=== PATIENT | female | born 1985 | race Caucasian/White ===

== ENCOUNTER → 2016-08-23 | Outpatient (CLI) | payer BC ==
[~2016-08-23] MED LIST: BCPILLS PO; NF406 PO
[2016-08-23 14:16] LABS: URINE TOTAL PROTEIN 142.5 mg/dl (0-11.9)
== END | disposition home or self-care (01) ==
LOC: C.LABMFLN 11:36
PROVIDERS: ATTEND Nurse Practitioner
DX: R80.9 Proteinuria, unspecified (principal)

== ENCOUNTER → 2016-09-20 | Outpatient (CLI) | payer BC ==
[2016-09-25 09:29] LABS: ALBUMIN % 81.02 %; ALPHA-2-GLOBULIN % 3.83 %; BETA GLOBULIN % 8.01 %; CREATININE UR 138 MG/DL (20-320); GAMMA GLOBULIN % 3.52 %
== END | disposition home or self-care (01) ==
LOC: C.LABMFLN 11:12
PROVIDERS: ATTEND Internal Medicine Nephrology
DX: R80.9 Proteinuria, unspecified (principal)

== ENCOUNTER → 2016-12-27 | Outpatient (CLI) | payer BC ==
--- NOTE | 2016-12-27 16:03 | DIAGNOSTIC IMAGING REPORT ---
ULTRASOUND KIDNEYS AND BLADDER CLINICAL HISTORY: Right-sided hydronephrosis. COMPARISON STUDY: No priors. TECHNIQUE: Real-time, grayscale, and color flow sonography of the kidneys and bladder is performed. Images are reviewed in the transverse and longitudinal planes. FINDINGS: Kidneys: The kidneys are normal in size and echotexture. The right kidney measures 11.8 cm in length and the left kidney measures 11.2 cm in length. There is no hydronephrosis. An extrarenal pelvis is noted on the right. No shadowing renal calculi are identified. There is no sonographic evidence of contour deforming renal mass lesion. No perinephric fluid is identified. Bladder: The bladder is normal as visualized. Ureteral jets were not seen. IMPRESSION: 1. The kidneys are normal in size and without hydronephrosis. 2. The bladder is normal as visualized. Electronically signed by: Jose Manuel Perera M.D. 12/27/2016 4:02 PM Dictated Date/Time: 12/27/2016 4:01 PM
== END | disposition home or self-care (01) ==
LOC: C.ULTR 15:00
PROVIDERS: ATTEND Internal Medicine Nephrology
DX: N13.30 Unspecified hydronephrosis (principal)

== ENCOUNTER 2017-03-13 11:52 | Emergency (ER) | payer BC ==
[~2017-03-13] VITALS: Ht 157.5 cm; Wt 59.9 kg
[~2017-03-13 11:52] MED LIST changes: -NF406 PO; +OSEL75CA23 PO
[2017-03-13 12:07] VITALS: TEMP 36.6; Ht 157.5 cm; Wt 59.9 kg
[2017-03-13] MEDS ORDERED: TAMSULOSIN HCL 0.4 MG CAP ONE (13:20)
[2017-03-13] MEDS ORDERED: SODIUM CHLORIDE 0.9% 1000ML 1,000 ML IV STA (13:27)
[2017-03-13] MEDS ORDERED: OPTIRAY 320 IV PRN (13:45)
[2017-03-13 14:24] LABS: BASO % 0.9 %; BASO ABS # 0.06 K/uL (0-0.2); EOS ABS # 0.13 K/uL (0-0.5); HEMATOCRIT 35.2 % (37-47); IG# 0.01 K/uL (0.00-0.02); LYMPH % 32.2 %; LYMPH ABS # 2.05 K/uL (1.2-3.4); MEAN CELL VOLUME 86.7 fL (80-100); MEAN CORPUSCULAR HEMOGLOBIN 29.6 pg (25-34); MEAN CORPUSCULAR HGB CONC 34.1 g/dl (32-36); MEAN PLATELET VOLUME 10.7 fL (7.4-10.4); MONO % 8.3 %; MONO ABS # 0.53 K/uL (0.11-0.59); NEUT % 56.4 %; NEUT ABS # 3.59 K/uL (1.4-6.5); PLATELET COUNT 190 K/uL (130-400); RED CELL DISTRIBUTION WIDTH CV 12.3 % (11.5-14.5); RED CELL DISTRIBUTION WIDTH SD 39.6 fL (36.4-46.3); WHITE BLOOD COUNT 6.37 K/uL (4.8-10.8)
[2017-03-13 14:40] LABS: CALCIUM 9.6 mg/dl (8.5-10.1); CREATININE 0.67 mg/dl (0.60-1.20); POTASSIUM 3.5 mmol/L (3.5-5.1)
[2017-03-13 14:42] LABS: TOTAL PROTEIN 7.2 gm/dl (6.4-8.2)
[2017-03-13 14:49] LABS: INFLUENZA B ANTIGEN Neg for Influ B (NEG)
--- NOTE | 2017-03-13 15:12 | DIAGNOSTIC IMAGING REPORT ---
CHEST 2 VIEWS ROUTINE CLINICAL HISTORY: Near syncope. COMPARISON STUDY: Chest radiograph May 29, 2013. FINDINGS: Lung volumes are normal. No pneumothorax or pleural effusion is noted. There is no consolidation or evidence of pulmonary edema. Nipple shadows are noted. Cardiomediastinal silhouette is normal. IMPRESSION: No acute cardiopulmonary findings. Electronically signed by: Willem Poon M.D. 03/13/2017 3:10 PM Dictated Date/Time: 03/13/2017 3:05 PM
--- NOTE | 2017-03-13 15:38 | DIAGNOSTIC IMAGING REPORT ---
CT OF THE ABDOMEN AND PELVIS WITH CONTRAST CLINICAL HISTORY: pain, near syncope s/p renal bx 2 days ago COMPARISON STUDY: Renal ultrasound December 27, 2016. TECHNIQUE: Following IV administration of 95 mL of Optiray-320, axial images of the abdomen and pelvis were obtained from the lung bases to the proximal femurs. Images were reviewed in the axial, sagittal, and coronal planes. IV contrast was administered without complication. A dose lowering technique was utilized adhering to the principles of ALARA. CT DOSE: 348.19 mGycm FINDINGS: A 5 mm right hepatic lobe cyst is noted. The spleen, adrenal glands, left kidney and pancreas are normal. There is no biliary or pancreatic ductal dilatation. Mild to moderate right hydronephrosis is similar to ultrasound of December 27, 2016. Band-like hypodensity within the lower pole of the right kidney likely reflects a biopsy tract. There is no subcapsular hematoma. No pseudoaneurysm is identified on this non-CTA exam. There is no perinephric hemorrhage. Caliber and wall thickness of small and large bowel are normal. The appendix is normal. There is no lymphadenopathy. The ovaries are not enlarged. Trace low-attenuation free pelvic fluid is likely physiologic. Uterus is retroverted. There is no lymphadenopathy. There are no suspicious osseous lesions. IMPRESSION: 1. Band-like hypodensity within the lower pole of the right kidney suggestive of a biopsy tract. No pseudoaneurysm, subcapsular hematoma or perinephric hemorrhage. The findings are considered within normal limits 2 days following a percutaneous renal biopsy. 2. Trace low-attenuation free fluid within the pelvis which is likely physiologic. 3. Mild to moderate right hydronephrosis which is similar to ultrasound December 27, 2016. Electronically signed by: Willem Poon M.D. 03/13/2017 3:36 PM Dictated Date/Time: 03/13/2017 3:29 PM
[2017-03-13 16:18] VITALS: BP 120/83; PULSE 77; O2SAT 99
--- NOTE | 2017-03-13 17:31 | EMERGENCY ROOM VISIT NOTE ---
History Report prepared by [place]: Yessi Jade Under the Supervision of: Dr. Quinton Garcia M.D. First contact with patient: 13:07 Chief Complaint: ILLNESS Stated Complaint: HEADACHE,SHAKINESS,SIDE PAIN,FAINTING History of Present Illness The patient is a 31 year old female who presents to the Emergency Room with complaints of persistent right flank pain starting 2 days ago. The patient had a right kidney biopsy 2 days ago to find out why she is urinating protein. Since the biopsy, she has been feeling ill. She is having R flank pain. She has been rubbing the area to some relief. She feels faint, shaky, and diaphoretic. She denies any headache, cough, LOC, fever, nausea, vomiting, or diarrhea. She denies any chance of . She denies any recent travel, hemoptysis, or recent surgeries. Source of History: patient Onset: 2 days ago Position: abdomen (RUQ) Quality: other (pain) Timing: other (persistent) Modifying Factors (Relieving): other (rubbing the area) Associated Symptoms: + diaphoresis, No LOC, No fevers, No cough, No nausea, No vomiting, No diarrhea Note: Pt reports feeling faint, shaky. Review of Systems See HPI for pertinent positives and negatives. A total of ten systems were reviewed and were otherwise negative. Past Medical & Surgical Medical Problems: (1) Asthma (2) Bronchitis (3) Kidney stone Surgical Problems: (1) H/O wisdom tooth extraction Family History Diabetes mellitus FH: gallbladder disease FH: heart disease FH: ovarian cancer Hypertension Kidney disease or stones Social History Smoking Status: Never Smoker Alcohol Use: none Marital Status: Housing Status: lives with family Current/Historical Medications No Active Prescriptions or Reported Meds Allergies Coded Allergies: Amoxicillin (Unverified Allergy, Severe, ANAPHYLAXIS, 03/13/17) Penicillins (Unverified Allergy, Mild, 03/13/17) Physical Exam Vital Signs Date Time Temp Pulse Resp B/P (MAP) Pulse Ox O2 Delivery O2 Flow Rate FiO2 03/13/17 16:18 77 18 120/83 99 03/13/17 15:38 74 18 118/79 100 Room Air 03/13/17 13:22 87 16 147/93 96 Room Air 03/13/17 12:07 36.6 89 18 151/87 99 Room Air Physical Exam Physical Exam GENERAL: She is oriented to person, place, and time. She appears well- developed and well-nourished. She does not appear distressed. ____ HENT: Exam performed. Head: Normocephalic and atraumatic. Right Ear: External ear normal. No mastoid tenderness. Left Ear: External ear normal. No mastoid tenderness. Mouth/Throat: The oropharynx is clear and moist. No trismus in the jaw. No dental abscesses or uvula swelling. No oropharyngeal exudate or tonsillar abscesses. ____ EYES: Conjunctivae and EOM are normal. Pupils are equal, round, and reactive to light. Right eye exhibits no discharge. Left eye exhibits no discharge. No scleral icterus. ____ NECK: Normal range of motion. Neck supple. No JVD present. No spinous process tenderness present. No carotid bruit present. No rigidity. No tracheal deviation and normal range of motion present. No Brudzinski's sign and no Kernig 's sign noted. ____ CV: Normal rate, regular rhythm, normal heart sounds and intact distal pulses. There is no peripheral edema. Palpable radial pulses bue. ____ PULM/CHEST: Effort normal and breath sounds normal. No respiratory distress. No stridor. She has no wheezes. She has no rales. Chest Wall: She exhibits no tenderness. ____ ABD: The abdomen is soft. Bowel sounds are normal. She has no distension. No mass is present. There is no tenderness. There is no rebound, no guarding, no Cabrera's sign and no tenderness at McBurney's point. Rovsig negative MUSC/SKEL: Normal range of motion. There is no peripheral edema, tenderness or deformity. Area over the right flank with biopsy was conducted shows no erythema. No purulent discharge. No bleeding. Mild tenderness on palpation. LYMPH: No cervical adenopathy. ____ NEURO: She is alert and oriented to person, place, and time. She has normal strength. No cranial nerve deficit or sensory deficit. Coordination and gait normal. GCS eye subscore is 4. GCS verbal subscore is 5. GCS motor subscore is 6. cerbellar tests wnl. ____ SKIN: Skin is warm and dry. She is not diaphoretic. ____ PSYCH: She has a normal mood and affect. Her behavior is normal. Judgment and thought content normal. ____ Medical Decision & Procedures ER Provider Diagnostic Interpretation: Xray results as stated below per my and radiologist interpretation. Radiology results as stated below per my review and radiologist interpretation: CHEST 2 VIEWS ROUTINE CLINICAL HISTORY: Near syncope. COMPARISON STUDY: Chest radiograph May 29, 2013. FINDINGS: Lung volumes are normal. No pneumothorax or pleural effusion is noted. There is no consolidation or evidence of pulmonary edema. Nipple shadows are noted. Cardiomediastinal silhouette is normal. IMPRESSION: No acute cardiopulmonary findings. Electronically signed by: Willem Poon M.D. 03/13/2017 3:10 PM Dictated Date/Time: 03/13/2017 3:[address] OF THE ABDOMEN AND PELVIS WITH CONTRAST CLINICAL HISTORY: pain, near syncope s/p renal bx 2 days ago COMPARISON STUDY: Renal ultrasound December 27, 2016. TECHNIQUE: Following IV administration of 95 mL of Optiray-320, axial images of the abdomen and pelvis were obtained from the lung bases to the proximal femurs. Images were reviewed in the axial, sagittal, and coronal planes. IV contrast was administered without complication. A dose lowering technique was utilized adhering to the principles of ALARA. CT DOSE: 348.19 mGycm FINDINGS: A 5 mm right hepatic lobe cyst is noted. The spleen, adrenal glands, left kidney and pancreas are normal. There is no biliary or pancreatic ductal dilatation. Mild to moderate right hydronephrosis is similar to ultrasound of December 27, 2016. Band-like hypodensity within the lower pole of the right kidney likely reflects a biopsy tract. There is no subcapsular hematoma. No pseudoaneurysm is identified on this non-CTA exam. There is no perinephric hemorrhage. Caliber and wall thickness of small and large bowel are normal. The appendix is normal. There is no lymphadenopathy. The ovaries are not enlarged. Trace low-attenuation free pelvic fluid is likely physiologic. Uterus is retroverted. There is no lymphadenopathy. There are no suspicious osseous lesions. IMPRESSION: 1. Band-like hypodensity within the lower pole of the right kidney suggestive of a biopsy tract. No pseudoaneurysm, subcapsular hematoma or perinephric hemorrhage. The findings are considered within normal limits 2 days following a percutaneous renal biopsy. 2. Trace low-attenuation free fluid within the pelvis which is likely physiologic. 3. Mild to moderate right hydronephrosis which is similar to ultrasound December 27, 2016. Electronically signed by: Willem Poon M.D. 03/13/2017 3:36 PM Dictated Date/Time: 03/13/2017 3:29 PM Laboratory Results 03/13/17 14:09 Red Blood Count 4.06, Mean Corpuscular Volume 86.7, Mean Corpuscular Hemoglobin 29.6, Mean Corpuscular Hemoglobin Concent 34.1, Mean Platelet Volume 10.7, Neutrophils (%) (Auto) 56.4, Lymphocytes (%) (Auto) 32.2, Monocytes (%) (Auto) 8.3, Eosinophils (%) (Auto) 2.0, Basophils (%) (Auto) 0.9, Neutrophils # (Auto) 3.59, Lymphocytes # (Auto) 2.05, Monocytes # (Auto) 0.53, Eosinophils # (Auto) 0.13, Basophils # (Auto) 0.06 03/13/17 14:09 Test 03/13/17 13:15 03/13/17 14:03 03/13/17 14:09 Urine Color YELLOW Urine Appearance CLEAR (CLEAR) Urine pH 6.5 (4.5-7.5) Urine Specific [place] 1.007 (1.000-1.030) Urine Protein NEG (NEG) Urine Glucose (UA) NEG (NEG) Urine Ketones NEG (NEG) Urine Occult Blood TRACE (NEG) Urine Nitrite NEG (NEG) Urine Bilirubin NEG (NEG) Urine Urobilinogen NEG (NEG) Urine Leukocyte Esterase NEG (NEG) Urine WBC (Auto) 1-5 /hpf (0-5) Urine RBC (Auto) 0-4 /hpf (0-4) Urine Hyaline Casts (Auto) 0 /lpf (0-5) Urine Epithelial Cells (Auto) 10-20 /lpf (0-5) Urine Bacteria (Auto) NEG (NEG) Urine Test NEG (NEG) Influenza Type A Antigen Neg for Influ A (NEG) Influenza Type B Antigen Neg for Influ B (NEG) White Blood Count 6.37 K/uL (4.8-10.8) Red Blood Count 4.06 M/uL (4.2-5.4) Hemoglobin 12.0 g/dL (12.0-16.0) Hematocrit 35.2 % (37-47) Mean Corpuscular Volume 86.7 fL (80-100) Mean Corpuscular Hemoglobin 29.6 pg (25-34) Mean Corpuscular Hemoglobin Concent 34.1 g/dl (32-36) Platelet Count 190 K/uL (130-400) Mean Platelet Volume 10.7 fL (7.4-10.4) Neutrophils (%) (Auto) 56.4 % Lymphocytes (%) (Auto) 32.2 % Monocytes (%) (Auto) 8.3 % Eosinophils (%) (Auto) 2.0 % Basophils (%) (Auto) 0.9 % Neutrophils # (Auto) 3.59 K/uL (1.4-6.5) Lymphocytes # (Auto) 2.05 K/uL (1.2-3.4) Monocytes # (Auto) 0.53 K/uL (0.11-0.59) Eosinophils # (Auto) 0.13 K/uL (0-0.5) Basophils # (Auto) 0.06 K/uL (0-0.2) RDW Standard Deviation 39.6 fL (36.4-46.3) RDW Coefficient of Variation 12.3 % (11.5-14.5) Immature Granulocyte % (Auto) 0.2 % Immature Granulocyte # (Auto) 0.01 K/uL (0.00-0.02) Anion Gap 6.0 mmol/L (3-11) Est Creatinine Clear Calc Drug Dose 96.3 ml/min Estimated GFR () 135.8 Estimated GFR (Non- 117.1 BUN/Creatinine Ratio 14.9 (10-20) Lactic Acid Level 1.2 mmol/L (0.4-2.0) Calcium Level 9.6 mg/dl (8.5-10.1) Total Bilirubin 0.4 mg/dl (0.2-1) Aspartate Amino Transf (AST/SGOT) 13 U/L (15-37) Alanine Aminotransferase (ALT/SGPT) 18 U/L (12-78) Alkaline Phosphatase 53 U/L (45-117) Total Protein 7.2 gm/dl (6.4-8.2) Albumin 4.0 gm/dl (3.4-5.0) Globulin 3.2 gm/dl (2.5-4.0) Albumin/Globulin Ratio 1.3 (0.9-2) Lipase 155 U/L (73-393) Laboratory results reviewed by me Medications Administered Medications (Trade) Dose Ordered Sig/Josiah Route Start Time Stop Time Status Last Admin Dose Admin Sodium Chloride 1,000 ml @ 999 mls/hr Q1H1M STAT IV 03/13/17 13:27 03/13/17 14:27 DC 03/13/17 14:30 999 MLS/HR ECG Indication: other (near syncope) Rate (beats per minute): 71 Rhythm: sinus rhythm Findings: no acute ischemic change, no ectopy, other (CA, QRS, QTc within normal limits, no ST elevation or ST depression) Change: Patient's electrocardiogram per my interpretation. ED Course 1321: The patient was evaluated in room A2. A complete history and physical exam was performed. 1327: NSS 1000 ml @ 999 mls/hr IV. 1430: I reevaluated the patient. 1556: I discussed the patient's case with [place]. [place], [facility] [place]. Given that the patient's labs and vitals are normal, she can be discharged home and follow up within one week. 1600: I reevaluated the patient. Repeat serial abdominal examination within normal limits. DISCHARGE - Plan of care discussed with patient and questions answered. The patient was given both verbal and printed discharge instructions. The patient verbalized understanding and ability to comply. The patient is to seek outpatient follow up as noted in the discharge instructions. The patient verbalized understanding and ability to comply. The patient is discharged in stable condition. The patient was instructed to return for worsening symptoms. Medical Decision Vss labs and imaging within normal limits. Discussed with [facility] who the patient sees outpatient and the patient will follow-up with them. Serial abdominal exams wnl dc w/ f/u pcp 1-7 days DISCHARGE - Plan of care discussed with patient and questions answered. The patient was given both verbal and printed discharge instructions. The patient verbalized understanding and ability to comply. The patient is to seek outpatient follow up as noted in the discharge instructions. The patient verbalized understanding and ability to comply. The patient is discharged in stable condition. The patient was instructed to return for worsening symptoms. Medication Reconcilliation Current Medication List: was personally reviewed by me Blood Pressure Screening Patient's blood pressure: Normal blood pressure Blood pressure disposition: Did not require urgent referral Consults Time Called: 1545 Consulting Physician: Dr. Rodriguez, [facility] Returned Call: [phone] I discussed the patient's case with him. Given that the patient's labs and vitals are normal, she can be discharged home and follow up within one week. Impression Primary Impression: Viral syndrome Additional Impression: Abdominal pain Scribe Attestation The scribe's documentation has been prepared under my direction and personally reviewed by me in its entirety. I confirm that the note above accurately reflects all work, treatment, procedures, and medical decision making performed by me. The chart was completed utilizing [employer] Speech voice recognition software. Grammatical errors, random word insertions, pronoun errors, and incomplete sentences are an occasional consequence of this system due to software limitations, ambient noise, and hardware issues. Any formal questions or concerns about the content, text, or information contained within the body of this dictation should be directly addressed to the physician for clarification. Departure Information Dispostion Home / Self-Care Prescriptions No Active Prescriptions or Reported Meds Referrals [facility] Forms HOME CARE DOCUMENTATION FORM, IMPORTANT VISIT INFORMATION, WORK / SCHOOL INSTRUCTIONS Patient Instructions Abdominal Pain - [facility], ED Viral Syndrome, My [facility] Additional Instructions follow up with your panel wirer Dr. Davila in 1-7 days Return to the emergency department if he developed fever greater 100.4, pass out , have a seizure, chest pain or difficulty breathing, or your symptoms worsen. Problem Qualifiers Additional Impression: Abdominal pain Abdominal location: unspecified location Qualified Codes: R10.9 - Unspecified abdominal pain
== END 2017-03-13 16:19 | disposition home or self-care (01) ==
LOC: C.EDB 11:54 → C.EDA 16:19
DX: R10.31 Right lower quadrant pain (principal); B34.9 Viral infection, unspecified; Z98.890 Other specified postprocedural states; J45.909 Unspecified asthma, uncomplicated; Z87.442 Personal history of urinary calculi; Z83.3 Family history of diabetes mellitus; Z82.49 Family history of ischemic heart disease and other diseases of the circulatory system; Z80.41 Family history of malignant neoplasm of ovary

== ENCOUNTER → 2017-03-20 | Outpatient (CLI) | payer BC ==
[~2017-03-20] MED LIST changes: -BCPILLS PO; +OPTIRAY 300 IV PRN; -OSEL75CA23 PO
--- NOTE | 2017-03-20 14:44 | DIAGNOSTIC IMAGING REPORT ---
IVP CLINICAL HISTORY: Hydronephrosis of right kidney. Right flank pain. COMPARISON STUDY: Renal ultrasound December 27, [address] of the abdomen and pelvis March 13, 2017. TECHNIQUE: Initially, a wastewater superintendent KUB was obtained. An IVP was then performed following intravenous injection of 100 cc of Optiray 320 IV. FINDINGS: No urinary calculi are identified on the wastewater superintendent KUB. Bowel gas pattern is normal. Pelvic calcifications reflect phleboliths. Both nephrograms are symmetric. There is mild right hydronephrosis with a normal caliber right ureter. No upper tract filling defects are identified. There is no left-sided hydronephrosis or hydroureter. No ureteral abnormalities are identified on this examination. Bladder is suboptimally assessed on this exam but no abnormalities identified. IMPRESSION: 1. Mild right hydronephrosis with mild dilatation of the right renal pelvis and minimal right calyceal dilatation. Normal caliber right ureter. 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 No evidence for a high-grade obstruction. 2. Otherwise unremarkable IVP. Electronically signed by: Willem Poon M.D. 03/20/2017 2:42 PM Dictated Date/Time: 03/20/2017 2:25 PM
== END | disposition home or self-care (01) ==
LOC: C.RAD 12:29
PROVIDERS: ATTEND Internal Medicine Nephrology
DX: N13.30 Unspecified hydronephrosis (principal); R10.9 Unspecified abdominal pain

== ENCOUNTER → 2017-05-10 | Outpatient (CLI) | payer BC | END | disposition home or self-care (01) | LOC: C.LAB1850 11:40 | PROVIDERS: ATTEND Internal Medicine Nephrology | DX: N02.2 Recurrent and persistent hematuria with diffuse membranous glomerulonephritis (principal) ==

== ENCOUNTER 2024-01-31 05:45 | Inpatient (IN) ==
--- NOTE | 2024-01-21 11:19 | Anesthesiology Consultation ---
Date of Service January 21, 2024 Assessment & Plan (1) Encounter for pre-operative examination: - anxiety: patient states has significant anxiety regarding , is requesting sedation. She states in the past has required sedation prior to being taken to the OR due to severe anxiety. Patient advised that determination on sedation/anxiety medication would need to be to OB determination regarding any options in consideration of impact. Exam & Advise: patient seen at PAT 01/21/24. Patient requested PAT appointment given anxiety regarding , states she feels okay with plan for spinal but is very anxious regarding experience of and history of severe an xiety without sedation. No obvious deformity noted to lumbar spine on exam at PAT visit. Patient educated on epidural/spinal; plan at this point for (patient would like spinal for pain management). All questions answered. Patient advised that determination on sedation or anxiety medication would need to be to OB determination regarding any options in consideration of impact. She ve rbalized understanding, expressed appreciation for discussion. She was instructed to call office if any other anesthesia questions or concerns arise; she indicated comfort with spinal/anesthesia plan. Business card given. Anca with surgeon's office made aware. Chart Review Chart Review: Acceptable Risk for Surgery and Patient seen in Pre Admission Testing History Surgery Operation Date: 01/31/24 07:30 Proposed Procedures p Section in LD (Delivery of Baby Through Abdominal Incision) - Stacia Telles MD, FACOG Height/Weight Height: 5 ft 6 in Weight: 86.5 kg Allergies Allergy/AdvReac Type Severity Reaction Status Date / Time amoxicillin Allergy Severe ANAPHYLAXIS Unverified 01/21/24 11:21 Penicillins Allergy Mild Unverified 01/21/24 11:21 Medications Home Medications Medication Instructions Recorded Confirmed Last Taken [id number] 1 dose PO DAILY 06/18/23 01/21/24 Unknown [ Plus] Past Medical History Medical History (Updated 01/21/24 @ 11:51 by Cyndie Dietrich PA-C) Asthma no current issues and no inhaler Rx Chicken pox as a child GERD (gastroesophageal reflux disease) during Iron deficiency anemia was on oral supplementation first two trimesters; received iron infusion 01/19 and scheduled for 2 more prior to due date Kidney stone hx of; no issues at present time 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 Exercise / Class Metabolic Activity II 4-5 Yardwork/Stairs/Walk up hill (mild shortness of breath with activities ongoing through -denies chest discomfort-denies change or worsening) Past Family History Family History Grandfather (Maternal) Myocardial infarction Grandfather (Paternal) Myocardial infarction Uncle Myocardial infarction Grandmother (Paternal) Stroke Other Nephrolithiasis Denies family history of Ovarian cancer Prostate cancer Diabetes Kidney disease Breast cancer Lung cancer Colorectal cancer Past Surgical History Surgical History H/O dilation and curettage x 3 for miscarriages H/O wisdom tooth extraction Past Anesthesia History No Family Hx of Anesthesia Complications and Other (severe chiquita-operative anxiety) History of PONV No Hx of PONV and Hx of Motion Sickness Social History Smoking Status: Never smoker Do You Dip or Chew Tobacco: No Hx Alcohol Use: No Hx Substance Use: No Review of Systems Patient denies chest pain, snoring, witnessed apneas, fever, chills, cough, wh eezing, or palpitations. Physical Exam Vital Signs Vitals BP 106/78 P 85 TEMP 97.8 SP02 97% on RA RESP 19 Physical Patient resting comfortably in chair in no acute distress, alert and oriented, responding appropriately throughout visit Full cervical extension range of motion without pain TMD 3.5 finger breadths Mallampati Score 2 Dentition: intact, denies chipped or loose teeth, caps/crowns, implants or bridges Lungs: normal respiratory effort. Good air movement, clear throughout to auscultation, no adventitious breath sounds Cardiac: regular rate and rhythm, no murmurs noted Carotid arteries: negative bruit bilat Lumbar: normal in appearance, nontender to palpation of spinous process, paraspinal muscles; no spinal malalignment on exam Lab Results Anesthesia Preop Results Results Anesthesia Widget: WBC 6.47 K/ul (4.8-10.8) 01/09/24 Hgb 10.2 g/dl (12.0-16.0) L 01/09/24 Hct 31.7 % (37.0-47.0) L 01/09/24 Plt 229 K/uL (130-400) 01/09/24 Na 137 mmol/L (136-145) 01/09/24 K 3.7 mmol/L (3.5-5.1) 01/09/24 Cl 107 mmol/L (98-107) 01/09/24 CO2 22 mmol/L (21-32) 01/09/24 BUN 5 mg/dl (6-23) L 01/09/24 Creat 0.59 mg/dl (0.6-1.2) L 01/09/24 Glucose Level 146 mg/dl (70-99(Fasting)) H 01/09/24
--- NOTE | 2024-01-30 16:59 | History & Physical Report ---
Date of Service January 30, 2024 Assessment & Plan (1) Breech presentation, no version: Plan: multigravida female with 3 prior 's now presents with persistent breech presentation at term will proceed with primary LTCS unless baby converts to cephalic by tomorrow am the procedure and it's risks reviewed with the patient and her and all questions answered to their satisfaction. requesting some sedation as she is very anxious about the section. I offered IV benadryl and she accepts as this usually makes her sleepy. History of Present Illness Primary Care Provider: NO PCP Patient is a 38 yo [id number] [facility] [birth year] who presents at 39 3/7 weeks for primary LTCS for persistent breech presentation. complicated by AMA status - testing has been reassuring. 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 GBS (+) blood type A negative Allergies Allergy/AdvReac Type Severity Reaction Status Date / Time amoxicillin Allergy Severe ANAPHYLAXIS Unverified 01/30/24 15:00 Penicillins Allergy Mild Unverified 01/30/24 15:00 Home Medications Medication Instructions Recorded Confirmed Type [id number] 1 dose PO DAILY 06/18/23 01/30/24 History [ Plus] Patient History Medical History (Updated 01/30/24 @ 17:04 by Stacia Telles MD, FACOG) GERD (gastroesophageal reflux disease) during Iron deficiency anemia was on oral supplementation first two trimesters; received iron infusion 01/19 and scheduled for 2 more prior to due date Chicken pox as a child 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 [facility]; per note, 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 Kidney stone hx of; no issues at present time Asthma no current issues and no inhaler Rx Surgical History H/O dilation and curettage x 3 for miscarriages H/O wisdom tooth extraction Family History Grandfather (Maternal) Myocardial infarction Grandfather (Paternal) Myocardial infarction Uncle Myocardial infarction Grandmother (Paternal) Stroke Other Nephrolithiasis Denies family history of Ovarian cancer Prostate cancer Diabetes Kidney disease Breast cancer Lung cancer Colorectal cancer Social History (Updated 06/18/23 @ 11:22 by Rosie Merino RN) Smoking Status: Never smoker Second Hand Exposure: No; Do You Dip or Chew Tobacco: No; Hx Alcohol Use: No Hx Substance Use: No Preferred Language: Yoruba Communication Ability: Effective Visual Impairment: Limited Hearing Ability: Normal Twisting Machine Operator Required: No Beliefs That Will Affect Care: None marital status: marital status details: Felipe Mcintyre [phone] Current Living Situation: Family Current Living Situation Comment: and 4 children, 3 dogs, 3 cats- changes litter current occupational status: employed current occupation: [employer] How many Children do You have: 4 Feels Safe at Home: Yes Childhood Exposure to Second-Hand Smoke: Yes Diet Comment: whole foods caffeine: Yes Dental Care, Regularly: Yes Physical Activity Frequency: 3-4 Times per Week Seatbelt Use: always Sunscreen Use: Yes Assistive Devices: Glasses Review of Systems All systems reviewed & are unremarkable except as noted in HPI & below Physical Exam Constitutional: WD/WN, vitals as above Respiratory: normal respiratory effort, lungs clear to auscultation Cardiovascular: RRR, no murmur, no edema Psychiatric: A+Ox3, euthymic affect Genitourinary: OB Exam Abdomen: + breech (confirmed by ultrasound) and + estimated weight (7-8 pounds) OB Exam Monitor Tracing: + external FHT monitor used, + external uterine monitor used, + category I and + normal FHT variability Coding Level of Care Code 78642 INT INP/OBS CARE 1/40MIN Diagnoses Breech presentation, no version O32.1XX0
[2024-01-31 06:28] LABS: Basophils # (auto) 0.05 K/uL (0.00-0.20); Basophils % (auto) 0.6 %; Eosinophils # (auto) 0.28 K/uL (0.00-0.50); Eosinophils % (auto) 3.5 %; Hematocrit (blood only) 35.2 % (37.0-47.0); Hemoglobin 11.4 g/dl (12.0-16.0); Immature Granulocytes % (auto) 1.2 %; Lymphocytes # (auto) 1.96 K/uL (1.20-3.40); Lymphocytes % (auto) 24.4 %; Mean Corpuscular Hemoglobin 27.2 pg (25.0-34.0); Mean Corpuscular Hgb Conc 32.4 g/dL (32.0-36.0); Mean Platelet Volume 11.3 fL (9.4-12.4); Monocytes # (auto) 0.81 K/uL (0.11-0.59); Monocytes % (auto) 10.1 %; Neutrophils # (auto) 4.83 K/uL (1.40-6.50); Neutrophils % (auto) 60.2 %; Platelet Count 191 K/uL (130-400); RDW Coefficient of Variation 18.1 % (11.5-14.5); RDW Standard Deviation 53.2 fL (36.4-46.3); Red Blood Count 4.19 M/uL (4.20-5.40); White Blood Count 8.03 K/ul (4.8-10.8)
[2024-01-31] MEDS: ACETAMINOPHEN 500 MG TAB PO SCH (06:32)
[2024-01-31] MEDS: SODIUM CHLORIDE 0.9% 1,000 ML IV SCH (06:33)
[2024-01-31] MEDS ORDERED: fentaNYL citrate PF 100 MCG/2 ML VIAL ONE (06:41)
[2024-01-31] MEDS ORDERED: MoRPHine SULFATE PF 1 MG/ML 10 ML AMP/VIAL ONE (06:41)
[2024-01-31] MEDS ORDERED: PHENYLEPHRINE HCL 10 MG/ML VIAL ONE (06:44)
[2024-01-31] MEDS ORDERED: SODIUM CHLORIDE 0.9% 1,000 ML IV SCH ×2 (07:00→09:15)
[2024-01-31] MEDS ORDERED: diphenhydrAMINE 50 MG/ML VIAL ONE (07:19)
[2024-01-31] MEDS ORDERED: diphenhydrAMINE 50 MG/ML VIAL IV STA (07:19)
--- NOTE | 2024-01-31 07:20 | History & Physical Bridge Note ---
Date of Service January 31, 2024 History & Physical Bridge Note I have examined the patient, reviewed the History & Physical and in the interval since the performance of the History & Physical I have noted the following changes of clinical significance: no changes noted
[2024-01-31] MEDS ORDERED: SODIUM CHLORIDE 0.9% PF INJ 10 ML VIAL ONE ×2 (07:21)
[2024-01-31] MEDS ORDERED: OXYTOCIN 30 UNITS/500ML NSS IV ONE (07:28)
[2024-01-31] MEDS: diphenhydrAMINE 50 MG/ML VIAL ONE (07:29)
[2024-01-31] MEDS: ceFAZolin 2000MG 2,000 MG/15 ML SYR IV SCH (07:35)
[2024-01-31] MEDS: CITRIC ACID/SODIUM CITRATE 15 ML UDC PO SCH (07:37)
[2024-01-31] MEDS ORDERED: NALOXONE HCL 1 MG in SODIUM CHLORIDE 0.9% 1,000 ML IV PRN (08:07)
[2024-01-31] MEDS ORDERED: MoRPHine SULFATE PF 1 MG/ML 10 ML AMP/VIAL INT SPINAL ONE (08:07)
[2024-01-31] MEDS ORDERED: DROPERIDOL 5 MG/2 ML VIAL IV PRN (08:07)
[2024-01-31] MEDS ORDERED: ePHEDrine sulfate 50 MG/ML AMP IV PRN (08:07)
[2024-01-31] MEDS ORDERED: diphenhydrAMINE 50 MG/ML VIAL IV PRN (08:07)
[2024-01-31] MEDS ORDERED: NALOXONE HCL 0.08 MG in SYRINGE 1.8 ML IV PRN (08:07)
[2024-01-31] MEDS ORDERED: NALOXONE HCL 0.4 MG/1 ML VIAL/CARP IV PRN (08:07)
[2024-01-31] MEDS ORDERED: NALBUPHINE HCL INJ 10 MG/ML AMP IV PRN (08:07)
[2024-01-31] MEDS ORDERED: ONDANSETRON INJ 2 MG/ML 2 ML VIAL ONE (08:10)
[2024-01-31] MEDS ORDERED: NO NARCOTICS OR SEDATIVES SCH (08:15)
[2024-01-31] MEDS ORDERED: DC INTRASPINAL MORPHINE SCH (08:15)
--- NOTE | 2024-01-31 08:59 | Post Operative Brief Note ---
Immediate Post Op Note Date of Surgery January 31, 2024 Pre & Post Diagnosis Operation Date: 01/31/24 07:30 Pre-Op Diagnosis: 1. Term 2. Breech presentation Post-Op Diagnosis: Same I identified the patient and participated in the time-out.: Yes Procedure Operation Date: 01/31/24 07:30 Actual Procedures p Section in LD (Delivery of Baby Through Abdominal Incision) with the of a live male child at 0813. - Stacia Telles MD, FACOG Surgeon Stacia Telles MD, FACOG Cartridge Gauger Nel Knight MD Quantitative Blood Loss (QBL) 314 Findings Consistent with Post-Op Diagnosis gravid uterus normal tubes and ovaries pamela breech presentation Specimens Specimen Description: A: Placenta-hold B: Cord Blood Drains Hawkins Catheter (hawkins cath placed after spinal; clear yellow urine noted upon insertion. ) Anesthesia Type Spinal Complications none Disposition Accompanied Patient To Recovery: Yes Disposition: L&D
[2024-01-31] MEDS ORDERED: CALCIUM CARBONATE 500 MG CHEWABLE TAB PO PRN (09:04)
[2024-01-31] MEDS ORDERED: ONDANSETRON INJ 2 MG/ML 2 ML VIAL IV PRN (09:04)
[2024-01-31] MEDS ORDERED: SENNA 8.6 MG TAB PO PRN (09:04)
[2024-01-31] MEDS ORDERED: BENZOCAINE 20% SPRY 85 APPLN/85 GM CAN EXT PRN (09:04)
[2024-01-31] MEDS ORDERED: MAGNESIUM HYDROXIDE SUSP 30 ML UDC PO PRN (09:04)
[2024-01-31] MEDS ORDERED: HYDROCORTISONE ACETATE 25 MG SUPP PR PRN (09:04)
[2024-01-31] MEDS ORDERED: DIPHTHER/TETAN/PERTUS Vaccine (Tdap, Adol/Adult) 0.5mL IM ONE (09:04)
[2024-01-31] MEDS: KETOROLAC 30 MG/ML VIAL IV SCH (09:36)
[2024-01-31] MEDS: OXYTOCIN 20 UNITS/LR 1,002 ML IV SCH (10:25)
--- NOTE | 2024-01-31 11:12 | Operative Report ---
Post Operative Report Pre & Post Diagnosis Operation Date: 01/31/24 07:30 Pre-Op Diagnosis: 1. Term 2. Breech presentation Post-Op Diagnosis: Same I identified the patient and participated in the time-out.: Yes Procedure Operation Date: 01/31/24 07:30 Actual Procedures p Section in LD (Delivery of Baby Through Abdominal Incision) with the of a live male child at 0813. - Stacia Telles MD, FACOG Surgeon Stacia Telles MD, FACOG Floatman Nel Knight MD Quantitative Blood Loss (QBL) 314 Findings Consistent with Post-Op Diagnosis Specimens Placenta to hold Drains Rodríguez catheter to straight drainage clear urine at the end of the case Anesthesia Type Spinal Complications none Disposition Accompanied Patient To Recovery: Yes Disposition: L&D Indications Persistent breech presentation at 39 weeks gestation. Description of Procedure After the patient received adequate subarachnoid block she was prepped and draped in usual sterile fashion. A low transverse skin incision was made with a scalpel and carried the fascia with the same scalpel. The fascia was the incision was extended transversely with Robledo scissors. The edges were then grasped with Michael clamps and the underlying rectus muscles bluntly sharply dissected off of the overlying fascia. The rectus muscle were then divided in the midline bluntly and the underlying peritoneum elevated and entered bluntly. The bladder was then taken down off of the anterior surface of the uterus and placed behind the bladder blade. The lower uterine segment was then entered with scalpel. Membranes were ruptured for clear fluid. The uterine incision was then extended by stretching the incision in a cephalad and caudad direction. The was delivered from the pamela breech presentation with moderate fundal pressure. The was vigorous crying and moving all 4 limbs. The cord was clamped and cut and the was handed off to Dr. Sam and the nursery team in attendance at the delivery. The placenta was then expressed intact with a three-vessel cord. The uterus was exteriorized and covered with a clean lap sponge. The uterine cavity was then explored found be free of any retained tissue or membranes. The uterus was closed in 2 layers in a running locking imbricating fashion with 0 Monocryl. Hemostasis was noted to be excellent at the uterine incision. Several bleeding sites on the bladder reflection were secured with the Bovie. The posterior cul-de-sac was free of any extra fluid or blood. The uterus was then placed back inside the abdominal cavity and the uterine incision examined once more. Continue to have excellent hemostasis. The rectus muscle were brought together on the midline with individual stitches of 0 Monocryl. Fascia was closed in a running fashion with 0 Vicryl. After irrigating the subcutaneous layer, the skin edges were reapproximated in a subcuticular fashion with 4-0 Vicryl. Patient tolerated the procedure well with mother and were doing well on arrival back in labor delivery I attest to the content of the Intraoperative Record and any orders documented therein. Any exceptions are noted below. OB Procedure Charges 03971
--- NOTE | 2024-01-31 11:16 | Anesthesiology Progress Note ---
Date of Service January 31, 2024 Anesthesia Post Procedure Vital Signs Vital Signs: Temp Pulse Resp BP Pulse Ox 01/31/24 11:11 94 01/31/24 11:11 70 01/31/24 11:11 67 95/54 L 94 01/31/24 11:06 68 94 01/31/24 11:04 66 94 01/31/24 11:01 76 92 01/31/24 10:56 66 93 01/31/24 10:51 71 95 01/31/24 10:50 66 101/55 L 01/31/24 10:46 66 95 01/31/24 10:43 67 94 01/31/24 10:41 71 98 01/31/24 10:36 65 94 01/31/24 10:33 68 94 01/31/24 10:31 70 95 01/31/24 10:26 76 95 01/31/24 10:21 69 16 97/61 L 95 01/31/24 10:21 69 97/61 L 95 01/31/24 10:16 69 96 01/31/24 10:11 71 95 01/31/24 10:06 75 97 01/31/24 10:01 96 01/31/24 10:01 65 01/31/24 10:01 66 98/57 L 01/31/24 09:59 65 103/56 L 01/31/24 09:58 73 80/41 L 01/31/24 09:56 64 96 01/31/24 09:53 64 98/53 L 01/31/24 09:51 65 14 93/50 L 96 01/31/24 09:51 65 93/50 L 96 01/31/24 09:46 72 96 01/31/24 09:41 66 16 100/53 L 95 01/31/24 09:41 66 100/53 L 95 01/31/24 09:39 64 101/53 L 01/31/24 09:36 78 96 01/31/24 09:31 70 16 96 01/31/24 09:31 70 96 01/31/24 09:26 80 96 01/31/24 09:21 79 97 01/31/24 09:20 98 H 20 119/58 L 97 01/31/24 09:20 74 119/58 L 01/31/24 09:16 80 103/54 L 97 01/31/24 09:11 81 98 01/31/24 09:10 17 95 01/31/24 09:06 82 98 01/31/24 09:01 85 99 01/31/24 09:00 18 96 01/31/24 08:56 78 96 01/31/24 08:51 36.7 C 82 16 135/85 96 01/31/24 08:51 89 135/85 97 01/31/24 07:09 91 H 132/70 01/31/24 06:10 36.7 C 99 H 18 121/73 01/31/24 06:05 36.7 C 99 H 18 121/73 Pain Intensity Lower Medial Abdomen: Pain Intensity: 0 Notes Mental Status: alert / awake / arousable Patient Amnestic to Procedure: Yes Nausea / Vomiting: adequately controlled Pain: adequately controlled Airway Patency, RR, SpO2: stable & adequate BP & HR: stable & adequate Hydration State: stable & adequate Neuraxial Anesthesia: was administered and sensory block is resolving Anesthetic Complications: no major complications apparent
[2024-01-31] MEDS: HYDROmorphone INJ 0.5 MG/0.5 ML SYR IV PRN (12:28)
[2024-01-31] MEDS: SIMETHICONE 80 MG CHEW PO SCH (14:35)
[2024-01-31] MEDS: ACETAMINOPHEN 325 MG TAB PO SCH (15:09)
[2024-01-31] MEDS: DOCUSATE SODIUM 100 MG CAP PO SCH (21:36)
[2024-02-01] MEDS ORDERED: PROMETHAZINE 12.5 MG/50.5 ML BAG IV PRN (02:07)
[2024-02-01] MEDS ORDERED: oxyCODONE HCL IR 5 MG TAB (IMMEDIATE RELEASE) PO PRN (02:07)
[2024-02-01] MEDS ORDERED: diphenhydrAMINE Capsule 25 MG CAP PO PRN (02:07)
[2024-02-01] MEDS ORDERED: HYDROmorphone INJ 0.5 MG/0.5 ML SYR IV PRN (02:07)
[2024-02-01] MEDS ORDERED: diphenhydrAMINE 50 MG/ML VIAL IV PRN (02:07)
[2024-02-01 07:07] LABS: Basophils # (auto) 0.03 K/uL (0.00-0.20); Basophils % (auto) 0.4 %; Eosinophils # (auto) 0.22 K/uL (0.00-0.50); Eosinophils % (auto) 2.8 %; Hematocrit (blood only) 30.1 % (37.0-47.0); Hemoglobin 9.8 g/dl (12.0-16.0); Immature Granulocytes # (auto) 0.05 K/uL (0.01-0.20); Immature Granulocytes % (auto) 0.6 %; Lymphocytes % (auto) 15.3 %; Mean Corpuscular Hemoglobin 27.8 pg (25.0-34.0); Mean Corpuscular Hgb Conc 32.6 g/dL (32.0-36.0); Mean Corpuscular Volume 85.3 fL (80.0-100.0); Monocytes # (auto) 0.74 K/uL (0.11-0.59); Monocytes % (auto) 9.5 %; Neutrophils # (auto) 5.58 K/uL (1.40-6.50); Neutrophils % (auto) 71.4 %; Platelet Count 147 K/uL (130-400); RDW Coefficient of Variation 18.5 % (11.5-14.5); RDW Standard Deviation 55.2 fL (36.4-46.3); Red Blood Count 3.53 M/uL (4.20-5.40); White Blood Count 7.82 K/ul (4.8-10.8)
[2024-02-01] MEDS: PRENATAL VITAMIN 1 TAB PO SCH (07:32)
[2024-02-01] MEDS: FERROUS SULFATE 325 MG TAB PO SCH (07:32)
--- NOTE | 2024-02-01 09:00 | Obstetrical Progress Note ---
Date of Service February 01, 2024 Assessment & Plan (1) Encounter for care and examination after delivery: satisfactory post-op/ course continue current care plan Subjective Ambulation: ambulating normally Voiding: no voiding problems Passing Gas:: Yes Diet Tolerance:: regular diet Lochia:: Small Feeding Type:: breast feeding doing well - able to ambulate and void without difficulty pain well controlled with scheduled /tylenol and Motrin Review of Systems All systems reviewed & are unremarkable except as noted in HPI & below Physical Exam Constitutional WD/WN, vitals as above Gastrointestinal (Abdomen) Inspection/Auscultation: + abdominal surgical incision (dry and intact) Psychiatric A+Ox3, euthymic affect Genitourinary OB Exam Abdomen: + fundal height Fundus: + firm and + relation to umbilicus (1 below U) Results & Data Vital Signs (Past 12 Hours) Vital Signs Temp Pulse Pulse Pulse Resp BP BP 02/01/24 08:52 97.9 F 78 16 95/54 L 02/01/24 07:11 97.9 F 77 16 02/01/24 03:19 97.9 F 61 18 106/69 02/01/24 02:10 16 02/01/24 01:40 16 02/01/24 00:00 16 01/31/24 23:30 01/31/24 23:03 18 01/31/24 22:52 97.7 F 66 16 107/66 01/31/24 22:16 18 01/31/24 21:17 18 BP Pulse Ox O2 Del Method 02/01/24 08:52 98 02/01/24 07:11 109/67 98 Room Air 02/01/24 03:19 99 Room Air 02/01/24 02:10 96 02/01/24 01:40 96 02/01/24 00:00 96 01/31/24 23:30 Room Air 01/31/24 23:03 99 01/31/24 22:52 99 Room Air 01/31/24 22:16 98 01/31/24 21:17 99
[2024-02-01] MEDS ORDERED: KETOROLAC 30 MG/ML VIAL IV PRN (09:04)
[2024-02-01] MEDS: IBUPROFEN 600 MG TAB PO SCH (09:47)
[2024-02-01] MEDS: bisacodyL 5 MG TABEC PO SCH (17:16)
[2024-02-02 06:54] LABS: Hematocrit (blood only) 35.3 % (37.0-47.0)
--- NOTE | 2024-02-02 08:41 | Obstetrical Progress Note ---
Date of Service February 02, 2024 Assessment & Plan (1) Encounter for care and examination after delivery: Ready for D/C home today, doing well. Subjective Ambulation: ambulating normally Voiding: no voiding problems Passing Gas:: Yes Diet Tolerance:: regular diet Lochia:: Small Feeding Type:: breast feeding Physical Exam Constitutional WD/WN, vitals as above Eyes PERRL, conjunctivae normal, anicteric sclerae Neck normal visual inspection Respiratory normal respiratory effort and able to speak in complete sentences; no respiratory distress and no labored breathing Cardiovascular Rate/Rhythm: regular rate and regular rhythm Extremities: no edema Chest (Breasts) Chest: normal inspection of chest Gastrointestinal (Abdomen) Inspection/Auscultation: abdomen normal to inspection Soft, postgravid Incision c/d/i surgical glue Psychiatric A+Ox3, euthymic affect Genitourinary OB Exam Abdomen: + fundal height Fundus: + firm and + relation to umbilicus (fundus just below umbilicus); not tender Results & Data Vital Signs (Past 12 Hours) Vital Signs Temp Pulse Resp BP Pulse Ox O2 Del Method 02/01/24 22:54 98.2 F 72 16 111/69 96 Room Air
[2024-02-02] MEDS ORDERED: bisacodyL 10 MG SUPP PR PRN (09:04)
[2024-02-02 09:16] VITALS: RESP 18; TEMP 97.9; O2SAT 97
[2024-02-02 09:18] VITALS: BP 106/69; PULSE 61
[2024-02-02] MEDS: IBUPROFEN 600 MG TAB PO PRN (09:31)
[2024-02-02] MEDS ORDERED: ACETAMINOPHEN 325 MG TAB PO PRN (15:04)
--- NOTE | 2024-02-03 12:31 | Discharge Summary ---
Date of Service February 03, 2024 Admission HPI Per Admitting Provider Patient is a 38 yo [id number] [facility] 02/[birth year] 24 who presents at 39 3/7 weeks for primary LTCS for persistent breech presentation. complicated by AMA status - testing has been reassuring. 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 GBS (+) blood type A negative Admission Exam (Per Admitting) Constitutional WD/WN, vitals as above Respiratory normal respiratory effort, lungs clear to auscultation Cardiovascular RRR, no murmur, no edema Gastrointestinal (Abdomen) Inspection/Auscultation: + abdominal surgical incision (dry and intact) Psychiatric A+Ox3, euthymic affect Genitourinary OB Exam Abdomen: + fundal height, + breech (confirmed by ultrasound) and + estimated weight (7-8 pounds) OB Exam Monitor Tracing: + external FHT monitor used, + external uterine monitor used, + category I and + normal FHT variability Discharge Data Consultations 01/31/24 05:47 Consult Anesthesiology Stat Procedures Performed Operation Date: 01/31/24 07:30 Actual Procedures p Section in LD (Delivery of Baby Through Abdominal Incision) with the of a live male child at 0813. - Stacia Telles MD, [facility] Course (1) Encounter for care and examination after delivery: Ready for D/C home today, doing well. Discharge Plan Discharge Items Patient Disposition: Home - Self-Care Reason For Visit: Breech Presentation Discharge Diagnosis: Activity: Per Instructions section Non-emergency contact: Assembly Department Supervisor Call non-emergency contact if: your symptoms worsen Follow-up/Referrals: PCP,NO [Primary Care Provider] - Diet: Regular Addtl Attending Provider Instructions: ACTIVITY RECOMMENDATIONS: * Gradual return to full activity over the next 2-3 weeks. * No lifting - nothing heavier than baby over the next 2-3 weeks. * Do not engage in vigorous exercise, sexual activity or sports until cleared by your physician. * Do not drive or operate any motorized equipment until cleared by your physician. * You may shower/bathe daily. MEDICATIONS: For discomfort or pain, you may use Acetaminophen (Tylenol), Ibuprofen (Advil), or Naproxen (Aleve) following the package directions. For constipation you may use Colace following the package directions. BREAST CARE: If you are not breast feeding: * Wear a supportive bra 24 hours a day for one to two weeks. * Avoid stimulating your breasts and nipples as much as possible during the first few weeks after delivery. * When taking a shower, have the warm water hit your back, not breasts. * When your breasts feel full, apply ice packs. Usually three to four times a day helps ease the discomfort. * Take a mild pain medication (Tylenol / Motrin) when you are uncomfortable. If breast feeding: * Use breast milk to lubricate nipples. Lansinoh cream may be used for sore nipples. You do not need to remove cream prior to breast feeding. If using a different brand of cream, check the label for directions regarding removal of cream prior to nursing. * Wear a supportive bra. * If having problems with breasts or breast feeding, call a consultant education or your health care provider. SPECIAL CARE INSTRUCTIONS: When you are discharged from the hospital, it is important for you to follow the instructions listed below: * During the first week at home, you should be able to care for yourself and your baby. In addition, the usual light household activities are encouraged. * Limit your activities to the way you feel. Do not try to clean the house or move furniture. Be sensible. * If you actively engage in sports and have done so up until the time of your delivery, you may resume these activities as soon as you feel able. This may take up to one month or even longer. Use good judgment. * Continue to take your vitamins for at least six weeks after the of your baby. * Your diet need not be limited unless you were on a special diet before your delivery. Breast-feeding mothers need around 2500 calories per day and at least 64-80 ounces of fluid per day (8 to 10 glasses). * You should eat foods from the four major food groups. Crash diets or fad diets are to be avoided. Eating lean meats, fresh fruits and vegetables, low-fat dairy products, high fiber foods and a regular exercise program, will help you get back to your pre- weight without putting your health at risk. * Constipation is sometimes a problem after delivery. Take a mild laxative as needed. If breast feeding, Milk of Magnesia is acceptable to use. You may use a suppository or Fleets enema. * A daily shower or tub bath is suggested. Wash incision daily with warm soapy water and pat dry. It doesn't need to be covered unless drainage is present. * A bloody vaginal discharge will usually continue until around four weeks . A small amount of bleeding may continue for as long as six weeks. Vaginal discharge changes from the bright red bleeding after delivery to pink then brownish and finally yellowish-pink before becoming white and disappearing. * Bleeding may increase with activity. Your first period may come in 4-8 weeks. If you are breast feeding, your period may be delayed even longer. * [place] (sex) can begin whenever both you and your partner feel comfortable and do not have any form of genital infection. It is recommended that you wait at least six weeks for internal and external healing to occur. If you have questions, please talk to your health care practitioner. A condom should be used to pr event infection and . * Foreplay, gentle intercourse and lubrication is very important the first several times to prevent pain. A water-based lubricant such as K-Y jelly or Astroglide may be used. * If you have RH negative blood and your baby is RH positive, you will receive RHOGAM by injection prior to discharge. The nurse will give you a card to keep with you that has the date and place that you received RHOGAM after delivery. * During your care, you had a Rubella screen done to check for the presence of rubella antibodies in your blood. If your test was negative, you will receive a Rubella vaccine prior to discharge. This vaccine may cause a fever, soreness at the injection site and flu-like symptoms. If these symptoms persist, notify your health care practitioner. is not advised for one month after a Rubella vaccine. * Verbalizes understanding of car seat law as reviewed with patient nursing. * Car Seat hand-out given and reviewed with patient by nursing. * Shaken baby information reviewed with patient by nursing. Call you doctor if: * Heavy bleeding (saturating several pads an hour) or passing clots the size of your fist. * A fever >101 degrees F (38.3 degrees C) on two occasions four hours apart and/or chills. * Unusual pain in the pelvic or vaginal areas. * Call the doctor for any increased redness, drainage or swelling around the incision and any pain unrelieved by prescribed pain medication. * "Baby Blues" lasting longer than two weeks. If you have any questions or concerns, call your health care practitioner at . FOLLOW UP VISIT: * Please call the office at to schedule a 6 week examination. It is important you keep this appointment. It is important for you to make arrangements for either yearly or twice yearly check-ups thereafter. Pending Studies at Discharge: No Stand-Alone Forms: My [facility], Smoking Cessation Medications and DC Order Prescriptions: Continued [id number] [ Plus] 1 dose PO DAILY Discharge Orders: Discharge Order (Routine); Ordered 02/02/24 Ordered By: Shayy Nava/Other Patient Handouts: Depression, DVT in Admission Data Admit Date/Time: 01/31/24 05:45 Attending Provider: Stacia Telles Admit Provider: Stacia Telles Primary Care Provider: PCP,NO Other Providers: Thomas Acevedo Other Interventions: Discharge Summary Assessment (RN) Last Done: 02/02/24 09:17 Coding Level of Care Code 76263 IN/OBS DISCH 30 MIN/LESS Diagnoses Encounter for care and examination after delivery Z39.2
== END 2024-02-02 10:50 | disposition home or self-care (01) | DRG 788 ==
LOC: 4S1 05:45 → EDSTATUS 07:30 → 4E2 11:30